=== PATIENT | male | born 1995 | race Asian ===

== ENCOUNTER 2024-12-28 21:26 | Emergency (ER) | payer MEDICAID, OTHER ==
[~2024-12-28] VITALS: Ht 180.3 cm; Wt 101.4 kg
[~2024-12-28 21:26] MED LIST: IBUP100T36 PO
[2024-12-28 21:38] VITALS: BP 118/81; PULSE 66; RESP 18; TEMP 97.8; O2SAT 98
[2024-12-29] MEDS: LIDOCAINE 1% 10 ML VIAL SQ ONE (01:46)
[2024-12-29] MEDS: PERTUSS(ACELL),DIPH,TET/PF 0.5 ML SYRINGE [ADULT] IM. ONE (01:46)
[2024-12-29] MEDS ORDERED: CEPH-558 PO (02:10)
== END 2024-12-29 02:33 | disposition home or self-care (01) ==
LOC: EMS 21:28
DX: S01.111A Laceration without foreign body of right eyelid and periocular area, initial encounter (principal); S06.0X0A Concussion without loss of consciousness, initial encounter; Z79.899 Other long term (current) drug therapy; X58.XXXA Exposure to other specified factors, initial encounter; Y93.63 Activity, rugby; Y92.89 Other specified places as the place of occurrence of the external cause; Y99.8 Other external cause status
CPT/HCPCS: 99283; 90715; 90471; 12013; J3490